=== PATIENT | male | born 1965 | race Two or more races ===

== ENCOUNTER 2017-10-29 11:30 | Outpatient (CLI) | payer BC ==
--- NOTE | 2017-10-29 12:11 | Diagnostic Imaging Report ---
Indication: Cough Technique: 2 views of the chest Comparison: None Findings: There is minimal perihilar atelectasis seen on the lateral view. Lungs and pleural spaces are otherwise clear. Heart size is normal Impression: No acute process
== END 2017-10-29 13:30 | disposition home or self-care (01) ==
LOC: RAD 11:30
DX: R05 Cough (principal); J98.11 Atelectasis
CPT/HCPCS: 71046

== ENCOUNTER 2018-01-08 05:36 | Day surgery (SDC) | payer BC ==
--- NOTE | 2018-01-07 18:25 | Pre-Procedure Note/Attestation ---
Pre-Procedure Note/Attestation Complete Prior to Procedure Planned Procedure: left Procedure Narrative: 1. Excision of posterior neck and left posterior neck subcutaneous tumors with multilayer closure. 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 I attest that, if there was a reasonable possibility of needing a blood transfusion, the patient (or the patient's legal sales representative advertising) was given the [facility] standardized written summary, pursuant to the Paddy [place]ota Blood Safety Act ([place] Health and Safety Code # 1645, as amended). I attest that I re-evaluated the patient just prior to the surgery and that there has been no change in the patient's H&P, unchanged from Dr. Perez Bangura's H /P. Fabio Goyal MD Jan 07, 2018 18:25
--- NOTE | 2018-01-07 18:27 | Brief Operative Note ---
Immediate Post Operative Note Operative Note Chief Complaint: Masses posterior left neck and posterior midline. 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 Post-op Diagnosis: same as pre-op Surgeon: Fabio Goyal Spinning Mule Operator: none Additional Surgeons: none Anesthesiologist: Jose Manuel Anesthesia: MAC, moderate sedation Specimen: yes - #1 Left neck #2 posterior neck Complications: none Condition: stable Fluids: D5LR 1L Estimated Blood Loss: volume - 75cc Drains: ezequiel - 1 i either incision-left neck and posterior neck Packing: none Implant(s) used?: No Fabio Goyal MD Jan 07, 2018 18:27
--- NOTE | 2018-01-07 18:29 | Discharge Instructions ---
Discharge Instructions Discharge Instructions Follow up with: Dr. Jay Jay paula 01/09/18Sunday Diet: regular Resume Normal Activity?: No Activity: light activity Pneumonia Vaccine: pt refused vaccine Influenza Vaccine (Dec to May): pt refused vaccine Follow Up Orders Pt has printed instructions which were reviewed and given to him in the office during his pre op wit me last week. Return to Work/School on: Jan 28, 2018 Special Instructions none For Surgical Patients Dressing Care: keep dry and clean July shower: No For Congestive Heart Failure Reminder Report to your physician any weight gain of 5 pounds or more in one week. Fabio Goyal MD Jan 07, 2018 18:29
[2018-01-08] VITALS (11 sets, daily range): BP systolic 101–119; BP diastolic 62–78
[~2018-01-08] VITALS: Ht 165.1 cm; Wt 90.7 kg
[2018-01-08] MEDS ORDERED: ATENOLOL50 MG ORAL (06:16)
[2018-01-08] MEDS ORDERED: PRAVASTATIN SOD20 M1 ORAL (06:16)
[2018-01-08] MEDS ORDERED: DESCOVY PO (06:16)
[2018-01-08] MEDS ORDERED: TIVICAY50 MG ORAL (06:16)
[2018-01-08] MEDS ORDERED: ZOLOFT100 MG ORAL (06:16)
[2018-01-08] MEDS ORDERED: Dexamethasone 4mg/ml vial IVP ONE (07:00)
[2018-01-08] MEDS ORDERED: Bacitracin Oint 15gm Tube TOPIC ONE (07:14)
[2018-01-08] MEDS ORDERED: Lidocaine 1% 10mg/ml/Epi 0.005mg/ml 30ml vial INJ ONE (07:15)
[2018-01-08] MEDS ORDERED: ceFAZolin sod 1 GM in D5W 55 ML IV ONE (07:15)
[2018-01-08] MEDS ORDERED: Bupivacaine w/Epi 0.25% 30ml Vial INJ ONE (07:15)
--- NOTE | 2018-01-08 07:26 | Anethesia Preoperative Eval ---
Anesthesia Pre-op PMH/ROS General Date of Evaluation: Jan 08, 2018 Anesthesiologist: Jose Manuel ASA Score: ASA 3 Mallampati Score Class I : Soft palate, uvula, fauces, pillars visible Class II: Soft palate, uvula, fauces visible Class III: Soft palate, base of uvula visible Class IV: Only hard plate visible Mallampati Classification: Class II Surgeon: Jay Jay Diagnosis: SQ mass left neck x2 Surgical Procedure: Excision sq mass left neck x2 Anesthesia History: none Family History: no anesthesia problems Allergies: Coded Allergies: No Known Allergies (Unverified , 01/01/17) Medications: see eMAR Patient NPO?: Yes NPO Date: Jan 07, 2018 NPO Time: 23:00 Past Medical History Cardiovascular: Reports: HTN, other - Hld; Denies: CAD, MS, valve dz, arrhythmia Pulmonary: 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 Exam Physician Exam Last Vital Signs Date Time Temp Pulse Resp B/P (MAP) Pulse Ox O2 Delivery O2 Flow Rate FiO2 01/08/18 06:25 97.5 72 20 115/68 98 97.5 01/08/18 06:17 Room Air Constitutional: NAD Cardiovascular: RRR Respiratory: CTA Airway Exam Mallampati Score: Class II MO: full ROM: full Anesthesia Pre-op A/P Labs see chart Studies Pre-op Studies: EKG - sr Risk Assessment & Plan Assessment: ASA III Plan: MAC Status Change Before Surgery: No Pre-Antibiotics Drug: Collette Rodriguez MD Jan 08, 2018 07:26
[2018-01-08] MEDS ORDERED: LR 1000ml 1,000 ML IVLG SCH (07:34)
[2018-01-08] MEDS ORDERED: Propofol 200mg/20ml IV ONE ×4 (07:36→08:57)
[2018-01-08] MEDS ORDERED: Lidocaine 1% MPF 10mg/ml 5ml ONE (07:36)
[2018-01-08] MEDS ORDERED: LORazepam Inj 2mg/ml 1ml IV PRN (07:45)
[2018-01-08] MEDS ORDERED: Hydromorphone 0.5mg/0.5ml inj IVP PRN (07:45)
[2018-01-08] MEDS ORDERED: Midazolam 2mg/2ml Inj IVP PRN (07:45)
[2018-01-08] MEDS ORDERED: fentaNYL 100 mcg/2 mL IV PRN (07:45)
[2018-01-08] MEDS ORDERED: DiphenhydrAMINE 50mg/ml Inj IVP PRN (07:45)
[2018-01-08] MEDS ORDERED: Sterile Water Irrig 1000ml IRRIG ONE (08:00)
[2018-01-08] MEDS ORDERED: NS Irrig 1000ml ONE (08:00)
[2018-01-08] MEDS ORDERED: LR 1000ml ONE (08:00)
[2018-01-08] MEDS ORDERED: CEPHALEXIN500 MG ORAL (09:38)
--- NOTE | 2018-01-08 09:39 | Immediate Post-Op Evaluation ---
Immediate Post-Op Evalulation Immediate Post-Op Evalulation Procedure: Excision of left neck SQ masses x2 Date of Evaluation: Jan 08, 2018 Time of Evaluation: 09:39 IV Fluids: 1L Blood Products: 0 Estimated Blood Loss: 75 Urinary Output: 0 Blood Pressure Systolic: 131 Blood Pressure Diastolic: 84 Pulse Rate: 83 Respiratory Rate: 16 O2 Sat by Pulse Oximetry: 98 Temperature (Fahrenheit): 97.2 Pain Score (1-10): 0 Nausea: No Vomiting: No Complications 0 Patient Status: awake, reacts, patent, none Hydration Status: adequate Drug: Ancef 2g Given Within 1 Hr of Incision: Yes Time Given: 08:00 Collette Whiting MD Jan 08, 2018 09:39
[2018-01-08] MEDS ORDERED: Norco 5mg/325mg tab ORAL PRN (09:45)
[2018-01-08] MEDS ORDERED: Metoclopramide 10mg/2ml Inj IVP PRN (09:45)
[2018-01-08] MEDS ORDERED: HYDROmorphone 1mg/ml Carpuject SUBQ PRN (09:45)
--- NOTE | 2018-01-08 12:32 | 48 Hour Post Anesthesia Eval ---
Post Anesthesia Evaluation Procedure: Excision of left neck SQ masses x2 Date of Evaluation: Jan 08, 2018 Time of Evaluation: 11:20 Blood Pressure Systolic: 106 0: 71 Pulse Rate: 75 Respiratory Rate: 20 Temperature (Fahrenheit): 97.7 O2 Sat by Pulse Oximetry: 96 Airway: patent Nausea: No Vomiting: No Pain Intensity: 0 Hydration Status: adequate Cardiopulmonary Status: at baseline Mental Status/LOC: patient returned to baseline Post-Anesthesia Complications: 0 Follow-up care needed: ready to discharge Collette Whiting MD Jan 08, 2018 12:32
--- NOTE | 2018-01-08 14:30 | Operative Note - Dictated ---
DATE OF OPERATION: 01/08/2018 SURGEON: Fabio Goyal M.D. FINISHING INSPECTOR: None. ANESTHESIOLOGIST: Dr. Richard. ANESTHESIA: IV sedation as well as 20 mL of 1% lidocaine, 1000 epinephrine, and Marcaine 0.5% with 1:200,000 epinephrine and 50:50 mixture. 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 FINDINGS: Lipodystrophy secondary to HIV medicines, left neck and posterior neck. PROCEDURE: Excision of two masses, left neck 6 x 8 cm and posterior neck of 2.5 x 5 cm. Three multilayer closure of each incision. TECHNIQUE: The patient was prepped and draped in usual manner. He was laid on his side making sure that his arms were well padded and his shoulders. A time-out was taken. All agreed as to equipment to be used and procedure to be done and pathology specimens to be sent. I then proceeded to make an incision over the left neck shoulder area to remove the lipoma. It was dissected easily. Upon removal, the last little cut found a vein. This was clamped, cut, and tied with 4-0 Vicryl x2. I then proceeded to clean out with Betadine to make sure there was no further bleeding. Please note that the left cranial nerve was identified and preserved. I then proceeded to close with three layers with a 4-0 Vicryl. Then placed a Micky drain and closed the skin with running 5-0 Prolene horizontal mattress suture x2, one in either side of the drain. I then turned my attention to the back. Made a vertical incision midline, dissected with electrocautery. The specimen was sent separately for fix section. Area was irrigated with Betadine and then closed with two layers of 4-0 Vicryl and then the Micky drain and 6-0 Prolene as done for the shoulder. Once this was completed, Telfa was placed around either drain and skin over the incision. I then proceeded to place fluffs and pressure dressing over this. Sponge and needle count was correct. Please note that after completing the left neck part of the procedure, which was the first part, we ran a sponge and needle count and all was correct and then we ran a second one upon closing the second incision, which was the posterior neck. ESTIMATED BLOOD LOSS: 75 mL. COUNTS: None. DRAINS: One [place] in either incision, one left neck and one posterior neck. Fabio Goyal M.D. DR: PUMA JOB#: [id number] CC: BERTHA
--- NOTE | 2018-01-09 18:31 | Cardiology Report ---
APPROVED REPORT EKG Measurement Heart [id number] Normal sinus rhythm Normal ECG
== END 2018-01-08 11:15 | disposition home or self-care (01) ==
LOC: SUR 05:36
DX: D17.0 Benign lipomatous neoplasm of skin and subcutaneous tissue of head, face and neck (principal); I10 Essential (primary) hypertension; E78.2 Mixed hyperlipidemia; E66.9 Obesity, unspecified; Z68.35 Body mass index [BMI] 35.0-35.9, adult; G47.33 Obstructive sleep apnea (adult) (pediatric); F32.9 Major depressive disorder, single episode, unspecified; F41.9 Anxiety disorder, unspecified; Z79.899 Other long term (current) drug therapy
CPT/HCPCS: 11426; 12045; 93005; J0690; J2250; J2405; J2704; J3010; 94003; 94150

== ENCOUNTER 2019-02-20 14:37 | Outpatient (CLI) | payer BC ==
[~2019-02-20 14:37] MED LIST: ATENOLOL50 MG ORAL; CEPHALEXIN500 MG ORAL; DESCOVY PO; PRAVASTATIN SOD20 M1 ORAL; TIVICAY50 MG ORAL; ZOLOFT100 MG ORAL
--- NOTE | 2019-02-20 16:49 | Diagnostic Imaging Report ---
Indication: Cough Technique: 2 views of the chest Comparison: 10/29/2017 Findings: Lungs and pleural spaces are clear. The heart size is normal. The bones are unremarkable. No significant interim change. Impression: Negative
== END 2019-02-20 16:37 | disposition home or self-care (01) ==
LOC: RAD 14:37
DX: R05 Cough (principal)
CPT/HCPCS: 71046